=== PATIENT | male | born 1965 | race Caucasian/White ===

== ENCOUNTER 2021-07-13 22:25 | Emergency (ER) | payer OTHER ==
[~2021-07-13] VITALS: Ht 177.8 cm; Wt 81.8 kg
[2021-07-13 22:54] LABS: BASO # 0.1 (0.0-0.2); BASO % 0.7 % (0.0-2.0); EOS # 0.1 (0.0-0.7); GRAN # 6.3 (1.4-6.5); GRAN % 75.9 % (42.2-75.2); HEMATOCRIT 45.3 % (42.0-52.0); HEMOGLOBIN 15.9 g/dl (13.5-18.0); LYMPH % 12.4 % (20.0-51.0); MEAN CELL VOLUME 91 fl (80.0-100.0); MEAN CORPUSCULAR HEMOGLOBIN 32 pg (27.0-31.0); MEAN CORPUSCULAR HGB CONC 35 g/dl (33.0-37.0); MEAN PLATELET VOLUME 10.5 fl (7.4-10.4); MONO # 0.8 (0.1-0.6); MONO % 9.8 % (1.7-9.3); PLATELET COUNT 179 K/mm3 (130-400); RED BLOOD COUNT 4.99 M/mm3 (4.20-5.60); REDCELL DISTRIBUTION WIDTH-CV 12.9 % (11.5-14.5)
[2021-07-13 23:04] LABS: PROTHROMBIN TIME 11.6 SECONDS (9.7-12.8)
[2021-07-13 23:14] LABS: ACETAMINOPHEN < 1.0 ug/mL (10-30); ALANINE AMINOTRANSFERASE 47 U/L (0-55); ALCOHOL(ethanol),MEDICAL < 10 mg/dL (0-10); ALKALINE PHOSPHATASE 49 U/L (0-750); ANION GAP 9 mmol/L; AST,SGOT 34 U/L (5-34); BILIRUBIN,TOTAL 0.6 mg/dL (0.2-1.2); BLOOD UREA NITROGEN 18 mg/dL (8-26); CALCIUM 9.4 mg/dL (8.4-10.2); CARBON DIOXIDE 24 mEq/L (22-29); CHLORIDE 105 mmol/L (98-107); CREATINE KINASE 95 U/L (30-200); CREATININE, serum 1.26 mg/dL (0.72-1.25); GLUCOSE 108 mg/dL (70-99); POTASSIUM 3.7 mmol/L (3.5-4.5); SALICYLATE < 5.0 mg/dL (15.0-30.0); SODIUM 138 mmol/L (136-145); TOTAL PROTEIN 7.1 gm/dL (6.2-8.1)
[2021-07-13 23:27] LABS: TROPONIN-I < 0.010 ng/mL (0.00-0.033)
[2021-07-13 23:38] LABS: COLLECTION METHOD CLEAN CATCH
[2021-07-13 23:45] LABS: MUCOUS Present /lpf; PH 6 (5-8); SQUAMOUS EPITHELIAL None Seen /hpf; URINE APPEARANCE Clear; URINE BACTERIA None Seen /hpf; URINE BILIRUBIN Negative (NEGATIVE); URINE BLOOD Negative (NEGATIVE); URINE COLOR Yellow; URINE GLUCOSE Negative (NEGATIVE); URINE KETONE Negative (NEGATIVE); URINE LEUKOCYTE ESTERASE Trace (NEGATIVE); URINE NITRATE Negative (NEGATIVE); URINE PROTEIN(semi-quant) Negative (NEGATIVE); URINE RBC 0-2 /hpf; URINE UROBILINOGEN Negative (NEGATIVE)
[2021-07-13 23:50] LABS: TRICYCLIC ANTIDEPRESS URINE NEGATIVE
[2021-07-14 02:38] VITALS: BP 141/88; PULSE 76; TEMP 97.7
== END 2021-07-14 02:20 | disposition home or self-care (01) ==
LOC: COL.ER 22:25
PROVIDERS: Student in an Organized Health Care Education/Training Program
DX: F43.0 Acute stress reaction (principal); R41.3 Other amnesia
CPT/HCPCS: J7030; Q9967